=== PATIENT | male | born 1980 | race Two or more races ===

== ENCOUNTER 2022-10-11 01:22 | Emergency (ER) | payer MEDICAID, OTHER ==
[~2022-10-11] VITALS: Ht 188 cm; Wt 70.4 kg
[2022-10-11 01:27] VITALS: BP 124/81; PULSE 107; RESP 17; TEMP 97.8; O2SAT 98
[2022-10-11] MEDS ORDERED: DOXY-447 PO (05:40)
[2022-10-11] MEDS ORDERED: IBUP-1456 PO (05:40)
[2022-10-11] MEDS ORDERED: ONDANSETRON ODT 4 MG TAB PO ONE (05:45)
[2022-10-11] MEDS ORDERED: HYDROcodone-ACET 5/325MG TAB PO ONE (05:45)
[2022-10-11] MEDS ORDERED: DOXYCYCLINE 100 MG TAB/CAP PO ONE (05:45)
== END 2022-10-11 06:04 | disposition home or self-care (01) ==
LOC: EDBD 01:25 → ER 01:25
DX: L73.2 Hidradenitis suppurativa (principal); Z48.01 Encounter for change or removal of surgical wound dressing; F17.210 Nicotine dependence, cigarettes, uncomplicated
CPT/HCPCS: 99284; Q0162

== ENCOUNTER 2022-11-19 11:44 | Emergency (ER) | payer MEDICAID ==
[~2022-11-19] VITALS: Ht 188 cm; Wt 64.7 kg
[~2022-11-19 11:44] MED LIST: DOXY-447 PO; IBUP-1456 PO
[2022-11-19 13:14] VITALS: BP 126/86; PULSE 120; RESP 16; TEMP 97.7; O2SAT 99
[2022-11-19] MEDS ORDERED: CLIN300C70 PO (13:30)
[2022-11-19] MEDS ORDERED: CLINDAMYCIN HCL 150 MG CAP PO ONE (13:30)
[2022-11-19] MEDS ORDERED: CLOT1CRE7 EX (13:30)
[2022-11-19] MEDS ORDERED: MUPI2OIN2 EX (13:30)
[2022-11-19] MEDS ORDERED: HYDROcodone-ACET 5/325MG TAB PO ONE (13:30)
== END 2022-11-19 14:53 | disposition home or self-care (01) ==
LOC: ER 11:44
DX: L03.011 Cellulitis of right finger (principal); L60.0 Ingrowing nail; B35.3 Tinea pedis; F17.210 Nicotine dependence, cigarettes, uncomplicated
CPT/HCPCS: 73130; 73630

== ENCOUNTER 2022-11-27 21:37 | Inpatient (IN) | payer MEDICAID ==
[~2022-11-27] VITALS: Ht 188 cm; Wt 65.4 kg
[~2022-11-27 21:37] MED LIST changes: +CLIN300C70 PO; +CLOT1CRE7 EX; +MUPI2OIN2 EX
[2022-11-27] MEDS ORDERED: SODIUM CHLORIDE 0.9% 1,000 ML IV ONE (22:00)
[2022-11-27 22:19] LABS: Basophils # (auto) 0.1 10 ^3/uL (0-0.2); Eosinophils # (auto) 0.6 10 ^3/uL (0-0.8); Lymphocytes # (auto) 1.2 10 ^3/uL (0.4-5.4); Monocytes # (auto) 0.9 10 ^3/uL (0-1.3); Red Cell Distribution Width 19.9 % (11.8-14.3)
[2022-11-27 22:21] LABS: Basophils % (auto) 0.9 % (0.0-2.0); Eosinophils % (auto) 4.2 % (0.0-7.0); Hematocrit 28.5 % (41.0-53.0); Lymphocytes % (auto) 8.7 % (10.0-50.0); Mean Corpuscular Hemoglobin 23.3 pg (28.0-32.0); Mean Corpuscular Hgb Conc. 31.5 g/dL (32.0-36.0); Monocytes % (auto) 6.9 % (0.0-12.0); Neutrophils # (auto) 10.7 10 ^3/uL (1.6-8.6); Neutrophils % (auto) 79.3 % (37.0-80.0); Red Blood Cells 3.85 10^6/uL (4.5-5.90); White Blood Cell 13.6 10^3/uL (4.4-10.8)
[2022-11-27 22:40] VITALS: PULSE 113; RESP 13; O2SAT 97
[2022-11-27 22:41] LABS: Alanine Aminotransferase 26 U/L (7-40); Albumin 3.5 g/dL (3.2-4.8); Alkaline Phosphatase 108 U/L (46-116); Anion Gap 6.7 (5-15); Aspartate Aminotransferase 23 U/L (13-40); BUN/Creatinine Ratio 10.6 (10.0-20.0); Bilirubin, Total 0.3 mg/dL (0.2-1.0); Blood Urea Nitrogen 10 mg/dL (9-23); Calcium 8.7 mg/dL (8.5-10.1); Carbon Dioxide 23.3 mmol/L (20-30); Chloride 105 mmol/L (98-107); Glucose 124 mg/dL (74-106); Potassium 3.6 mmol/L (3.5-5.1); Sodium 135 mmol/L (136-145); Total Protein 9.6 g/dL (5.7-8.2)
[2022-11-27 22:55] LABS: Lipase 36 U/L (12-53)
[2022-11-27] MEDS ORDERED: HYDROmorphone HCL 2 MG/ML VL/or syr IV ONE (23:15)
[2022-11-27] MEDS ORDERED: ONDANSETRON HCL 4 MG/2 ML VIAL IV ONE (23:15)
[2022-11-28] MEDS ORDERED: LACTATED RINGER'S 1,000 ML IV ONE (00:15)
[2022-11-28] MEDS ORDERED: metroNIDAZOLE 500MG/100ML 100 ML IV ONE (00:15)
[2022-11-28] MEDS ORDERED: PIPERACILLIN-TAZOB 3.375GM 100 ML IV ONE (00:15)
[2022-11-28] MEDS ORDERED: LACTATED RINGER'S 2,000 ML IV ONE (00:15)
[2022-11-28] MEDS ORDERED: IOHEXOL 350 MG/ML 100ML IJ ONE (00:32)
[2022-11-28] MEDS ORDERED: ACETAMINOPHEN 325 MG TAB PO PRN (02:45)
[2022-11-28] MEDS ORDERED: HYDROcodone-ACET 5/325MG TAB PO PRN (02:45)
[2022-11-28] MEDS ORDERED: ONDANSETRON HCL 4 MG/2 ML VIAL IV PRN (02:45)
[2022-11-28] MEDS ORDERED: TEMAZEPAM 15 MG CAP PO PRN (02:45)
[2022-11-28] MEDS: MORPHINE SULFATE INJ 2 MG/ml SYRG IV PRN ×4 (04:48→23:20)
[2022-11-28] MEDS: methylPREDNISolone SOD SUCC 40 MG/ML VL IV SCH ×2 (04:49→10:13)
[2022-11-28] MEDS: CLINDAMYCIN 600MG IV 50 ML IV SCH ×3 (06:06→23:11)
[2022-11-28 07:35] VITALS: PULSE 81; RESP 18; O2SAT 98
[2022-11-28] MEDS: cefTRIAXone 1GM/50ML D5W 50 ML IV SCH (09:24)
[2022-11-28] MEDS: SILVER SULFADIAZINE 1 % TOPICAL CREAM 50GM TOP SCH (10:10)
[2022-11-28] MEDS: PANTOPRAZOLE 40 MG TAB PO SCH (10:11)
[2022-11-28] MEDS: METOPROLOL SUCCINATE XL 50 MG TAB PO SCH (10:12)
[2022-11-28] MEDS: SODIUM CHLORIDE 0.9% 1,000 ML IV SCH ×2 (10:41→23:10)
[2022-11-28 11:25] LABS: % Iron Saturation 11.2 % (20-55)
[2022-11-28] MEDS: LACTULOSE 20Gm/30ML SOLN PO ONE ×2 (15:00→16:00)
[2022-11-28 17:00] VITALS: PULSE 89; RESP 14; O2SAT 96
[2022-11-28] MEDS: FERROUS SULFATE 325mg EC TAB PO SCH (18:02)
[2022-11-28] MEDS: DOCUSATE SOD 100 MG CAP PO SCH (22:22)
[2022-11-28 22:51] VITALS: BP 116/75; PULSE 81; RESP 16; TEMP 98; O2SAT 97
[2022-11-28 23:39] VITALS: PULSE 81; RESP 16; O2SAT 96
[2022-11-29] VITALS (7 sets, daily range): BP systolic 102–125; BP diastolic 51–78; PULSE 72–84; RESP 16–20; TEMP 36.7; O2SAT 96–99
[2022-11-29] MEDS: CLINDAMYCIN 600MG IV 50 ML IV SCH ×3 (05:18→21:32)
[2022-11-29 05:56] LABS: Basophils # (auto) 0 10 ^3/uL (0-0.2); Basophils % (auto) 0.1 % (0.0-2.0); Eosinophils # (auto) 0 10 ^3/uL (0-0.8); Eosinophils % (auto) 0.1 % (0.0-7.0); Hematocrit 26.8 % (41.0-53.0); Hemoglobin 8.4 g/dL (13.5-17.5); Lymphocytes # (auto) 1.6 10 ^3/uL (0.4-5.4); Lymphocytes % (auto) 8.4 % (10.0-50.0); Mean Corpuscular Hemoglobin 23.7 pg (28.0-32.0); Mean Corpuscular Hgb Conc. 31.5 g/dL (32.0-36.0); Mean Corpuscular Volume 75.2 fL (80.0-100.0); Monocytes # (auto) 1.5 10 ^3/uL (0-1.3); Monocytes % (auto) 8.2 % (0.0-12.0); Neutrophils # (auto) 15.6 10 ^3/uL (1.6-8.6); Neutrophils % (auto) 83.2 % (37.0-80.0); Red Blood Cells 3.56 10^6/uL (4.5-5.90); Red Cell Distribution Width 19.7 % (11.8-14.3); White Blood Cell 18.7 10^3/uL (4.4-10.8)
[2022-11-29 06:08] LABS: Chloride 109 mmol/L (98-107); Potassium 3.7 mmol/L (3.5-5.1); Sodium 138 mmol/L (136-145)
[2022-11-29 06:09] LABS: Anion Gap 5 (5-15); Calcium 8.6 mg/dL (8.7-10.4); Carbon Dioxide 24 mmol/L (20-30)
[2022-11-29 06:14] LABS: BUN/Creatinine Ratio 11.8 (10.0-20.0); Blood Urea Nitrogen 9 mg/dL (9-23); Glucose 111 mg/dL (74-106)
[2022-11-29] MEDS: SILVER SULFADIAZINE 1 % TOPICAL CREAM 50GM TOP SCH (10:00)
[2022-11-29] MEDS: METOPROLOL SUCCINATE XL 50 MG TAB PO SCH (10:00)
[2022-11-29] MEDS: FERROUS SULFATE 325mg EC TAB PO SCH ×2 (10:12→18:00)
[2022-11-29] MEDS: DOCUSATE SOD 100 MG CAP PO SCH ×2 (10:12→21:31)
[2022-11-29] MEDS: PANTOPRAZOLE 40 MG TAB PO SCH (10:12)
[2022-11-29] MEDS: cefTRIAXone 1GM/50ML D5W 50 ML IV SCH (10:13)
[2022-11-29] MEDS: MORPHINE SULFATE INJ 2 MG/ml SYRG IV PRN ×2 (10:22→21:39)
[2022-11-29] MEDS ORDERED: SULF400T11 PO (10:50)
[2022-11-29] MEDS ORDERED: IBUP-1454 PO (10:50)
[2022-11-29] MEDS: SODIUM CHLORIDE 0.9% 1,000 ML IV SCH (13:10)
[2022-11-29 15:15] LABS: Hepatitis B Surface Antigen Negative (Negative)
[2022-11-29 15:37] LABS: Hepatitis C Antibody Negative (Negative)
[2022-11-30] MEDS: SODIUM CHLORIDE 0.9% 1,000 ML IV SCH ×2 (02:30→18:07)
[2022-11-30] MEDS: MORPHINE SULFATE INJ 2 MG/ml SYRG IV PRN ×3 (04:06→21:40)
[2022-11-30 05:00] VITALS: BP 128/64; PULSE 64; RESP 18; TEMP 98; O2SAT 100
[2022-11-30] MEDS: CLINDAMYCIN 600MG IV 50 ML IV SCH ×3 (06:06→21:52)
[2022-11-30 07:19] LABS: Alanine Aminotransferase 19 U/L (7-40); Alkaline Phosphatase 86 U/L (46-116); Anion Gap 4 (5-15); Aspartate Aminotransferase 17 U/L (13-40); BUN/Creatinine Ratio 13.9 (10.0-20.0); Bilirubin, Total < 0.2 mg/dL (0.2-1.0); Blood Urea Nitrogen 10 mg/dL (9-23); Calcium 8.3 mg/dL (8.5-10.1); Carbon Dioxide 26 mmol/L (20-30); Chloride 106 mmol/L (98-107); Glucose 96 mg/dL (74-106); Potassium 3.9 mmol/L (3.5-5.1); Sodium 136 mmol/L (136-145)
[2022-11-30 08:00] VITALS: BP 104/72; PULSE 84; PULSE 87; RESP 20; TEMP 36.7; O2SAT 90
[2022-11-30 08:14] LABS: Basophils # (auto) 0.1 10 ^3/uL (0-0.2); Basophils % (auto) 0.5 % (0.0-2.0); Eosinophils # (auto) 0.3 10 ^3/uL (0-0.8)
[2022-11-30 08:18] LABS: Eosinophils % (auto) 1.7 % (0.0-7.0); Hematocrit 28.2 % (41.0-53.0); Hemoglobin 8.9 g/dL (13.5-17.5); Lymphocytes # (auto) 1.5 10 ^3/uL (0.4-5.4); Lymphocytes % (auto) 9.6 % (10.0-50.0); Mean Corpuscular Hemoglobin 23.4 pg (28.0-32.0); Mean Corpuscular Hgb Conc. 31.6 g/dL (32.0-36.0); Mean Corpuscular Volume 74.1 fL (80.0-100.0); Monocytes # (auto) 0.9 10 ^3/uL (0-1.3); Monocytes % (auto) 5.5 % (0.0-12.0); Neutrophils % (auto) 82.7 % (37.0-80.0); Nucleated Red Blood Cells % 0.1 %; Red Cell Distribution Width 19.4 % (11.8-14.3); White Blood Cell 15.8 10^3/uL (4.4-10.8)
[2022-11-30 09:09] VITALS: BP 121/79; PULSE 87; RESP 20; TEMP 98.7; O2SAT 90
[2022-11-30] MEDS: SILVER SULFADIAZINE 1 % TOPICAL CREAM 50GM TOP SCH (09:56)
[2022-11-30] MEDS: cefTRIAXone 1GM/50ML D5W 50 ML IV SCH (09:56)
[2022-11-30] MEDS: DOCUSATE SOD 100 MG CAP PO SCH ×2 (09:57→21:39)
[2022-11-30] MEDS: PANTOPRAZOLE 40 MG TAB PO SCH (09:57)
[2022-11-30] MEDS: FERROUS SULFATE 325mg EC TAB PO SCH ×2 (09:58→18:07)
[2022-11-30] MEDS: METOPROLOL SUCCINATE XL 50 MG TAB PO SCH (09:59)
[2022-11-30 13:09] VITALS: BP 120/84; PULSE 88; RESP 21; TEMP 97.6; O2SAT 97
[2022-11-30 20:00] VITALS: BP 107/62; PULSE 89; RESP 14; TEMP 98.2; O2SAT 98
[2022-11-30 21:28] VITALS: BP 107/62; PULSE 89; RESP 14; TEMP 98.2; O2SAT 98
[2022-12-01 04:47] VITALS: BP 120/72; PULSE 90; RESP 18; TEMP 98.1; O2SAT 98
[2022-12-01] MEDS: SODIUM CHLORIDE 0.9% 1,000 ML IV SCH (05:10)
[2022-12-01] MEDS: MORPHINE SULFATE INJ 2 MG/ml SYRG IV PRN ×2 (06:02→12:34)
[2022-12-01] MEDS: CLINDAMYCIN 600MG IV 50 ML IV SCH ×2 (06:04→14:14)
[2022-12-01 06:13] LABS: Anion Gap 5 (5-15); Carbon Dioxide 26 mmol/L (20-30); Chloride 106 mmol/L (98-107); Potassium 3.9 mmol/L (3.5-5.1); Sodium 137 mmol/L (136-145)
[2022-12-01 06:14] LABS: Calcium 8.5 mg/dL (8.7-10.4)
[2022-12-01 06:19] LABS: BUN/Creatinine Ratio 12.3 (10.0-20.0); Blood Urea Nitrogen 10 mg/dL (9-23); Glucose 111 mg/dL (74-106)
[2022-12-01 06:23] LABS: Basophils % (auto) 0.3 % (0.0-2.0); Hemoglobin 9.4 g/dL (13.5-17.5); Monocytes # (auto) 1.4 10 ^3/uL (0-1.3)
[2022-12-01 06:35] LABS: Basophils # (auto) 0.1 10 ^3/uL (0-0.2); Eosinophils # (auto) 0.6 10 ^3/uL (0-0.8); Eosinophils % (auto) 3.5 % (0.0-7.0); Hematocrit 29.4 % (41.0-53.0); Lymphocytes # (auto) 1.8 10 ^3/uL (0.4-5.4); Lymphocytes % (auto) 10.8 % (10.0-50.0); Mean Corpuscular Hgb Conc. 31.8 g/dL (32.0-36.0); Mean Corpuscular Volume 75.4 fL (80.0-100.0); Monocytes % (auto) 8.5 % (0.0-12.0); Neutrophils # (auto) 12.4 10 ^3/uL (1.6-8.6); Neutrophils % (auto) 76.9 % (37.0-80.0); Red Cell Distribution Width 19.7 % (11.8-14.3); White Blood Cell 16.2 10^3/uL (4.4-10.8)
[2022-12-01 08:00] VITALS: BP 104/72; PULSE 73; PULSE 84; RESP 16; TEMP 36.7; O2SAT 97
[2022-12-01 08:48] LABS: Hypochromia Moderate
[2022-12-01 08:49] LABS: Anisocytosis Slight
[2022-12-01 08:51] LABS: Platelet Estimate Increased
[2022-12-01 09:00] VITALS: BP 116/66; PULSE 73; RESP 18; TEMP 98.3; O2SAT 97
[2022-12-01] MEDS: METOPROLOL SUCCINATE XL 50 MG TAB PO SCH (10:00)
[2022-12-01] MEDS: cefTRIAXone 1GM/50ML D5W 50 ML IV SCH (10:01)
[2022-12-01] MEDS: FERROUS SULFATE 325mg EC TAB PO SCH (10:03)
[2022-12-01] MEDS: PANTOPRAZOLE 40 MG TAB PO SCH (10:04)
[2022-12-01] MEDS: DOCUSATE SOD 100 MG CAP PO SCH (10:04)
[2022-12-01] MEDS: SILVER SULFADIAZINE 1 % TOPICAL CREAM 50GM TOP SCH (10:06)
[2022-12-01 12:46] VITALS: BP 125/72; PULSE 89; RESP 18; TEMP 97.8; O2SAT 97
[2022-12-01] MEDS ORDERED: CLIN300C70 PO (15:53)
[2022-12-01] MEDS ORDERED: HYDR-4902 PO (15:53)
[2022-12-01 16:35] VITALS: BP 121/79; PULSE 87; TEMP 36.6
== END 2022-12-01 17:30 | disposition home or self-care (01) | DRG 720 ==
LOC: ER 21:37 → EDBD 21:37 → OVERFLOW 11-28 02:41 → WEST WING 11-28 22:33
PROVIDERS: ADMIT Nurse Practitioner; ATTEND Nurse Practitioner Acute Care
DX: A41.9 Sepsis, unspecified organism (principal); F17.210 Nicotine dependence, cigarettes, uncomplicated; I10 Essential (primary) hypertension; L73.2 Hidradenitis suppurativa; Z59.00 Homelessness unspecified; Z76.5 Malingerer [conscious simulation]
CPT/HCPCS: 36415; 74177; 80048; 80053; 83540; 83550; 83605; 83690; 85025; 86141; 86803; 87040; 87205; 87340; 96365; 96375; G0378; J0696; J2405; J2543; J3490

== ENCOUNTER 2022-12-10 17:45 | Emergency (ER) | payer MEDICAID ==
[~2022-12-10] VITALS: Ht 182.9 cm; Wt 70.4 kg
[~2022-12-10 17:45] MED LIST changes: +HYDR-4902 PO; +IBUP-1454 PO; +SULF400T11 PO
[2022-12-10 17:53] VITALS: BP 113/78; PULSE 110; RESP 16; O2SAT 99
== END 2022-12-10 20:01 | disposition left against medical advice (07) ==
LOC: EDBD 17:45 → ER 17:45
DX: K59.00 Constipation, unspecified (principal); R10.84 Generalized abdominal pain; R11.0 Nausea; Z53.21 Procedure and treatment not carried out due to patient leaving prior to being seen by health care provider